=== PATIENT | female | born 1955 | race Caucasian/White ===

== ENCOUNTER 2024-04-15 18:32 | Emergency (ER) | payer MEDICARE, OTHER, SELFPAY ==
[2024-04-15 18:33] VITALS: BMI 24.5
[2024-04-15 18:35] VITALS: BP 114/78
[2024-04-15 19:20] LABS: Urine Albumin Trace (Neg - Trace); Urine Bilirubin 1+ (Negative); Urine Character Clear (Clear); Urine Color Yellow; Urine Glucose Negative (Negative); Urine Ketone Negative (Negative); Urine Leukocyte 1+ (Negative); Urine Nitrite Negative (Negative); Urine Occult Blood Negative (Negative); Urine Specific Gravity 1.015 (<1.030); Urine Urobilinogen Negative (Neg - 1+)
[2024-04-15 19:27] LABS: Urine Bacteria Few (Negative); Urine Red Blood Cell 0-2 /HPF (0-2); Urine White Cell 0-2 /HPF (0-5)
[2024-04-15] MEDS: LIDOCAINE 4% PATCH 1 PATCH TOPICAL (19:42)
[2024-04-15] MEDS: TORADOL 30 MG IM (19:42)
--- NOTE | 2024-04-15 19:49 | ED.GENMED ---
History of Present Illness
General
Chief Complaint: Back Pain
Time Seen by Provider: 04/15/24 19:07
History of Present Illness
History of Present Illness:
69-year-old female without significant past medical history presenting to the emergency department for left-sided back pain. Patient reports 3 days ago she was planting in her yard. She bent forward and suddenly started to have left-sided back
pain. Pain has been persistent, not alleviated by home remedies. She tried Tylenol, Motrin, pain patches. She reports she even tried her dogs pain medication. No radiation of pain to her legs. Denies any weakness or numbness to her legs.
Denies any urinary or fecal issues. Denies abdominal pain or vomiting. Denies fever. Denies issues with her back in the past. Pain is worse with any twisting, or deep inspiration. Denies chest pain. Denies difficulty breathing. Denies
additional acute medical complaints.
Phy Exam
Physical Exam
Physical Exam:
General: Well-appearing, no clinical signs of dehydration, nontoxic and in no acute distress
HEENT: protecting airway
Neck: appears supple
CV: Normal heart rate, regular rhythm, no evidence of cyanosis
Resp: No accessory muscle use, no increased work of breathing, lungs clear to auscultation bilaterally
Abd: Soft and non-distended, no tenderness to palpation
Extremities: No deformities, no swelling, no erythema, pulses and sensation intact. Reproducible tenderness primarily at the left thoracic musculature at the inferior rib angles. No crepitus. No overlying skin changes. No tenderness to the
midline spine.
Neuro: alert, no focal neurologic deficit
: deferred
Rectal: deferred
Psych: Normal affect
Skin: Intact
Course
Orders/Labs/Results
Orders:
Orders
04/15/24 19:10
UA Reflex to Culture [Urinalysis Reflex To Culture] Urgent
Date Specimen was Collected: 04/15/24
Time Specimen was Collected: 19:06
Urine Microscopic Reflex Cult Urgent
Urine Culture Urgent
JANAY Source: U
Specimen Description:
Date Specimen was Collected: 04/15/24
Time Specimen was Collected: 19:06
04/15/24 19:26
Ketorolac [Toradol] 30 mg IM NOW STA
Ribs, Left 3 View W/PA Chest CR [CR Ribs-left 3 Vw W/pa Chest] Urgent
Comment:
Reason For Exam: pain inferiorly
04/15/24 19:39
Lidocaine [Lidocaine 4% Patch] 1 patch .ROUTE .STK-MED ONE
04/15/24 21:24
Oxycodone/Acetaminophen [Percocet 5/325] 1 tablet PO NOW STA
04/16/24 08:00
Lidocaine [Lidocaine 4% Patch] 1 patch TOPICAL DAILY
Apply Lidocaine patch(s) to:: thoracic back
Abnormal Lab Results
04/15/24
19:10
Urine Bilirubin 1+ A
(Negative)
Leukocyte Esterase Rfl 1+ A
(Negative)
Urine Bacteria (Reflex) Few A
(Negative)
Vital Signs
Initial and Last Documented VS:
Initial Vital Signs
Temp Pulse Resp BP Pulse Ox
98 F 82 16 114/78 98
04/15/24 18:35 04/15/24 18:35 04/15/24 18:35 04/15/24 18:35 04/15/24 18:35
Last Documented Vital Signs
Temp Pulse Resp BP Pulse Ox
98 F 80 15 118/82 99
04/15/24 18:35 04/15/24 21:19 04/15/24 21:19 04/15/24 21:19 04/15/24 21:19
MDM/Problems Addressed
MDM/Problems Addressed:
69-year-old female without significant past medical history presenting to the emergency department for left-sided back pain after planting in her yard 3 days ago. Vital signs on arrival are normal.
On exam, patient in no acute distress, slightly uncomfortable secondary to pain. Pain is reproducible most notably to the left thoracic musculature. No midline spinal tenderness. In the absence of trauma and absence of reproducible tenderness to
the spine, without concern for spinal trauma. No focal neurologic deficits with motor and sensation intact to the lower extremities, without concern for central neurologic process. Patient afebrile, without additional systemic symptoms, without
concern for infectious pathology. Patient denies any urinary complaints, notes pain after bending. Without concern for renal pathology. Suspect musculoskeletal etiology. Will screen with left rib x-ray. Will treat with Toradol and lidocaine
patch. Patient had urinalysis obtained, negative for renal pathology.
21:20 -x-ray without acute pathology. Patient reports mild improvement of pain, however is requesting something stronger for pain. Will provide Percocet. Otherwise remains hemodynamically stable. She is neurologically intact. Feel stable for
discharge with continued outpatient follow-up and supportive therapy. Prescription sent for Percocet, steroids, lidocaine. Return precautions discussed and patient verbalized understanding
*Critical Care Note
Total Time (30-74mins, 75-104mins- exclusive of procedures): Not Applicable
ED Attending Note
-
Portions of this chart may have been created with voice recognition software.� Occasional wrong word or��sound alike� substitutions may have occurred due to the inherent limitations of voice recognition software.
Discharge Plan
Departure
Prescriptions:
No Action
duloxetine 20 mg Capsule,Delayed Release(Dr/Ec)
20 mg PO BID
Referrals:
Christin Roman MD [Family Provider] -
Interventions
Interventions:
*Risk Screen - Suicide Last Done: 04/15/24 18:35
*General Assessment Last Done: 04/15/24 19:08
*Neglect/Abuse Screening Last Done: 04/15/24 18:35
ED- Fall Risk Assessment Last Done: 04/15/24 19:08
*ED COVID-19 Vaccine History Last Done: 04/15/24 19:08
ED-Musculoskeletal Assessment Last Done: 04/15/24 19:07
Discharge Date and Time
Print Language: SLOVENIAN
[2024-04-15 21:19] VITALS: BP 118/82
[2024-04-15] MEDS: PERCOCET 5/325 1 TABLET PO (21:28)
== END 2024-04-15 21:55 | disposition home or self-care (01) ==
LOC: EMR 18:32
PROVIDERS: Emergency Medicine; EMERGENCY PHYSICIAN Student in an Organized Health Care Education/Training Program; FAMILY PHYSICIAN Student in an Organized Health Care Education/Training Program
DX: M54.6 Pain in thoracic spine (principal)
CPT/HCPCS: 99283; 71101; 81003; 81015; 87086

== ENCOUNTER → 2024-05-18 11:44 | Outpatient (REF) | payer MEDICARE, OTHER, SELFPAY | LOC: RAD 11:44 | PROVIDERS: ATTENDING PHYSICIAN Student in an Organized Health Care Education/Training Program | DX: Z87.891 Personal history of nicotine dependence (principal) | CPT/HCPCS: 71271 ==

== ENCOUNTER → 2024-08-11 10:53 | Outpatient (REF) | payer MEDICARE, OTHER, SELFPAY | LOC: RAD 10:53 | PROVIDERS: FAMILY PHYSICIAN Student in an Organized Health Care Education/Training Program | DX: M81.0 Age-related osteoporosis without current pathological fracture (principal); Z12.31 Encounter for screening mammogram for malignant neoplasm of breast | CPT/HCPCS: 77063; 77067; 77080 ==

== ENCOUNTER 2024-09-28 06:15 | Day surgery (SDC) | payer MEDICARE, SELFPAY | END 2024-09-28 09:07 | disposition home or self-care (01) | LOC: GI 06:15 | PROVIDERS: ATTENDING PHYSICIAN Specialist | DX: Z12.11 Encounter for screening for malignant neoplasm of colon (principal); K57.30 Diverticulosis of large intestine without perforation or abscess without bleeding; K63.5 Polyp of colon | CPT/HCPCS: 45380; 45385; 88305 ==

== ENCOUNTER → 2025-04-21 16:22 | Outpatient (REF) | payer MEDICARE, SELFPAY | LOC: RAD 16:22 | PROVIDERS: ATTENDING PHYSICIAN Internal Medicine; FAMILY PHYSICIAN Student in an Organized Health Care Education/Training Program | DX: S20.219A Contusion of unspecified front wall of thorax, initial encounter (principal) | CPT/HCPCS: 71046 ==

== ENCOUNTER → 2025-05-05 13:26 | Outpatient (REF) | payer MEDICARE, SELFPAY | LOC: HWRAD 13:26 | PROVIDERS: ATTENDING PHYSICIAN Student in an Organized Health Care Education/Training Program | DX: R93.89 Abnormal findings on diagnostic imaging of other specified body structures (principal) | CPT/HCPCS: 71250 ==

== ENCOUNTER → 2025-05-22 10:32 | Outpatient (REF) | payer MEDICARE, SELFPAY | LOC: RAD 10:32 | PROVIDERS: ATTENDING PHYSICIAN Student in an Organized Health Care Education/Training Program | DX: J18.9 Pneumonia, unspecified organism (principal); J90 Pleural effusion, not elsewhere classified; R93.89 Abnormal findings on diagnostic imaging of other specified body structures | CPT/HCPCS: 71250 ==

== ENCOUNTER 2025-06-21 06:08 | Day surgery (SDC) | payer MEDICARE, SELFPAY ==
[2025-06-14 12:10] LABS: APTT 29.2 Sec (23.4-35.0); INR 0.98; PT 13.3 Sec (11.4-14.6)
[2025-06-14 12:41] LABS: Blood Urea Nitrogen 15 mg/dl (7-17); Calcium 9.1 mg/dl (8.4-10.2); Carbon Dioxide 31 mmol/L (22-30); Chloride 102 mmol/L (98-107); Glucose 84 mg/dl (70-99); Potassium 4.5 mmol/L (3.5-5.1); Sodium 139 mmol/L (135-145); eGFR > 60.00
[2025-06-14 13:47] VITALS: BMI 23.2
[2025-06-15 09:09] LABS: Hematocrit 44.7 % (37.0-47.0); Hemoglobin 15.0 g/dL (12.0-16.0); Mean Corp Hgb Conc. 33.6 g/dL (33.0-37.0); Mean Corpuscular Volume 88.0 fL (81.0-99.0); Platelet Count 373 10^3/uL (130-400); Red Cell Dist. Width 13.6 % (11.5-14.5)
[2025-06-21] VITALS (7 sets, daily range): BP systolic 131–169; BP diastolic 62–92; BMI 23.2
[2025-06-21] MEDS: VENTOLIN NEBULES 2.5 MG INH (10:56)
[2025-06-21] MEDS: NSS 500 IV (11:18)
== END 2025-06-21 14:26 | disposition home or self-care (01) ==
LOC: SDS 06:08
PROVIDERS: ATTENDING PHYSICIAN Internal Medicine; FAMILY PHYSICIAN Student in an Organized Health Care Education/Training Program
DX: R91.1 Solitary pulmonary nodule (principal)
CPT/HCPCS: 31629; 31624; 31623; 31625; 31627; 31654; 71045; 76000; 80048; 85027; 85610; 85730; 87070; 87102; 87116; 87205; 88112; 88173; 88305; 94640; C1887